=== PATIENT | female | born 1955 | race Caucasian/White ===

== ENCOUNTER 2019-09-29 20:22 | Emergency (ER) | payer OTHER, SELFPAY ==
[2019-09-29 20:21] VITALS: BP 110/56; PULSE 77; RESP 24; TEMP 36.7; O2SAT 100
--- NOTE | 2019-09-29 20:29 | ED.GENADUL_ITS ---
Discharge Plan Disposition Patient Disposition: HOME Condition: Good Discharge Details Chief Complaint: GenMedical Clinical Impression: Syncope, vasovagal, Neck pain on left side, Muscle strain Primary Care Provider: Elsa,Local ED Provider: Gera Abdalla Home Meds and New Rx's Prescriptions: No Action fluticasone propion-salmeterol [Advair Diskus] 250-50 mcg/dose Blister With Device 1 inh INHALATION DAILY RF: 0 fexofenadine [Kristen Allergy] 180 mg Tablet 180 mg PO DAILY RF: 0 montelukast [Singulair] 10 mg Tablet 10 mg PO DAILY RF: 0 Prilosec OTC 20 mg Tablet,Delayed Release (Dr/Ec) 20 mg PO DAILY RF: 0 Discharge Instructions Instructions: Muscle Strain (ED), Syncope (ED) Additional Instructions: At this time your heart markers show no signs of significant cardiac abnormality. Your passing out may have been from dehydration, however there is concern that a cardiac arrhythmia may have caused her symptoms. Since you are going home it is absolutely imperative that you follow-up extremely closely with your primary care provider in [place] as soon as possible. I would recommend a Holter monitor or Zio-patch. Make sure to drink plenty of fluids over the next few days. Stand up slowly after lying down for some time. If you notice any worsening of your symptoms, or any new symptoms such as vomiting, diarrhea, fever, chills, shortness of breath, chest pain, numbness, weakness, or fainting , please return immediately to the emergency department for reevaluation. Please follow up with your primary care provider as soon as possible for reassessment and reevaluation. As always, it was a pleasure participating in your medical care today. Medical Decision Making This is a 63-year-old female with a past medical history of asthma alone and mild reflux who presents today for evaluation of syncope and left neck pain. Patient had a day of snowshoeing and snow shoveling and had no complaints throughout the entire day except for mild left neck pain. She was taken to Celebrex without any significant change in her symptoms. This evening while she was resting she began to have worsening of her pain which led to nausea. She went to go to the bathroom when after defecating she had 2 episodes of syncope. She did not hit her head or have any trauma. She has consistently denied any chest pain shortness of breath. No cardiac history or history of stroke. Physical exam is notably unremarkable for any evidence of trauma, neurologic deficit, carotid bruit, or other abnormality that I can appreciate. EKG shows a partial right bundle. Will attempt to get previous EKGs from her home provider in [place]. Differential is broad, but includes dehydration, defecation/vagal related syncope, but also includes carotid aneurysm or dissection, or other atypical cardiac mediated abnormality. We will continue to monitor, gently rehydrate, get a CTA of the head neck and chest and reassess. 10:47 PM Patient's laboratory work-up is returned, no significant abnormalities, no electrolyte abnormalities, troponin normal, anion gap minimally elevated at 13.7. Left neck pain is notably relieved with Lidoderm patch. Patient is feeling much better. CT Carla of the head neck and chest have returned and per virtual radiology no evidence of aneurysm or acute abnormality whatsoever. No signs of stenosis of significance. Unfortunately we are unable to get the i nitial EKG from her other establishments. I again reiterated the patient's previous neck pain, and she states very clearly that there was no exertional component, it was not improved with rest, and was really very minimal earlier today. It seems very unlikely that this is related to a cardiac etiology and more likely musculoskeletal especially with the improvement with Lidoderm patch. I did discuss with the patient admission/observation to the hospital with her Vale syncope rule only being elevated with the slightly atypical EKG, and at this time through notable discussion, weighing the risks and benefits, utilizing a shared decision making process, and with a very clear discussion on the benefit of admission and the risks associated with discharge including the unlikely but potential worst case scenario of or lifelong disability the patient has refused admission and would like to go home. Patient is of a appropriate age to make decisions. The patient is of sound mind, appears clinically sober, and has capacity to make decisions by my clinical exam. Since we are discharging the patient per her wishes I have requested a repeat troponin and EKG. We will get serial troponins EKG prior to discharge. Also of note the patient will be traveling back to [place] tomorrow. She would like to follow-up with her doctor down there. 11:58 PM Serial troponins and serial EKGs remained unchanged. The patient feels well and still asking to go home. As discussed previously we did discuss risks and benefits of observation versus discharge, the patient understands and accepts these risks by being discharged at her request. Feel that her symptoms are likely commendation mild dehydration in conjunction with her multiple outdoor activities that occurred today, and especially in the absence of chest pain, tearing sensation in her chest, shortness of breath, arm or shoulder pain, and with no exertional components related to her neck pain and in addition to her neck pain being relieved with the Lidoderm patch, in conjunction with her being in the lowest risk category for the heart score I feel her symptoms are clinically inconsistent with ACS or cardiac etiology at this time. In spite of this at an abundance of precaution we have recommended that she follows up extremely closely with a primary care provider in [place] when she gets home. We discussed red flags for which to return. I have extensively reviewed the treatment plan and discharge instructions with the patient and their family. I have addressed all patient concerns at this time. The patient and family was made aware of what symptoms to monitor for that would warrant a return to the emergency department. Discussed the plan with the patient and family, they demonstrate verbal understanding and agreement with our assessment and plan at this time. Immediately prior to discharge we did get the patient up and ambulate her again. She did go urinate and did very well with no lightheadedness or syncope. She feels back to her baseline, and is ready to go home. EKG 20: 28 Rate 66, sinus rhythm, intervals normal, RSR in V1 with inverted T wave, 1 mm J- point elevation in V2, no other inverted T waves, no evidence of significant ST elevation indicative of STEMI. No depressions. EKG 23: 55 Rate 65, intervals normal, sinus rhythm, RSR in V1, with inverted T wave, 1 mm J-point elevation in V2. No other inverted T waves or significant elevation or depression. No signs of STEMI. No acute changes from prior EKG FINDINGS: Pulmonary arteries: Normal. No pulmonary emboli. Aorta: Unremarkable. No aortic aneurysm. No aortic dissection. Lungs: Unremarkable. No consolidation. No masses. Pleural space: Unremarkable. No pneumothorax. No pleural effusion. Heart: Unremarkable. No cardiomegaly. No pericardial effusion. Lymph nodes: Unremarkable. No enlarged lymph nodes. Bones/joints: Unremarkable. No acute fracture. Soft tissues: Unremarkable. IMPRESSION: No acute findings. Thank you for allowing us to participate in the care of your patient. Dictated and Authenticated by: Ari Gallegos MD 09/29/2019 10:26 PM Eastern Time ([place] & [place]) FINDINGS: Right internal carotid artery: Intracranial segment is patent with no evidence of hemodynamically significant stenosis. No aneurysm. Right anterior cerebral artery: No occlusion or significant stenosis. No aneurysm. Right middle cerebral artery: No occlusion or significant stenosis. No aneurysm. Right posterior cerebral artery: No occlusion or significant stenosis. No aneurysm. Right vertebral artery: No occlusion or significant stenosis. No aneurysm. Left internal carotid artery: Intracranial segment is patent with no evidence of hemodynamically significant stenosis. No aneurysm. Left anterior cerebral artery: No occlusion or significant stenosis. No aneurysm. Left middle cerebral artery: No occlusion or significant stenosis. No aneurysm. Left posterior cerebral artery: No occlusion or significant stenosis. No aneurysm. Left vertebral artery: No occlusion or significant stenosis. No aneurysm. Basilar artery: No occlusion or significant stenosis. No aneurysm. IMPRESSION: No intracranial arterial occlusion or significant stenosis. FINDINGS: Brain: No intracranial hemorrhage or extra-axial fluid collection. No evidence of mass effect or midline shift. Mansfield-white matter differentiation is intact. Ventricles: No ventriculomegaly. Bones/joints: No acute osseus lesion or fracture. Sinuses: Unremarkable as visualized. Mastoid air cells: Unremarkable. Soft tissues: Unremarkable. IMPRESSION: No acute intracranial pathology. ASPECTS score 10 FINDINGS: VASCULATURE: Right common carotid artery: No significant stenosis. No dissection or occlusion. Right internal carotid artery: Extracranial segment is patent with no significant stenosis (0% stenosis by NASCET criteria). No dissection or occlusion. Right external carotid artery: No occlusion or significant stenosis. Right vertebral artery: No significant stenosis. No dissection or occlusion. Left common carotid artery: No significant stenosis. No dissection or occlusion. Left internal carotid artery: Atherosclerotic plaques involving the proximal extracranial left internal carotid artery without evidence of hemodynamically significant stenosis (0% stenosis by NASCET criteria). Left external carotid artery: No occlusion or significant stenosis. Left vertebral artery: No significant stenosis. No dissection or occlusion. NECK: Bones/joints: No acute fracture. Soft tissues: Unremarkable. IMPRESSION: No occlusion or significant stenosis in the arteries of the neck. HPI General Date/Time Provider Initiated Documentation: 09/29/19 20:24 . HPI Narrative: This is a 63-year-old female with a past medical history of asthma and occasional reflux who presents today for evaluation of syncope and left neck pain. Patient is up visiting from [place]. Patient spent the entire day snowblowing, and snowshoeing and had no pain difficulty or complication at all during this. During these episodes she had no chest pain shortness of breath or anything else. However throughout the day she has had a mild aching stabbing left neck pain. She did take 2 Aleve and this slightly improved her symptoms. This evening at home she had 1 alcoholic beverage, and subsequently began having worsening of her left neck pain as the night went on, she felt lightheaded and nauseous, she went to the bathroom and had a bowel movement, she was spending quite some time and there, family members came into the bathroom and then the patient syncopized. She did not hit her head, no trauma. She then had 1 more subsequent episode of syncope during that time as well. EMS was contacted. Patient continues to deny chest pain ripping or tearing sensation shortness of breath. She denies any significant headache or vision changes. Her neck pain in the left persists. She denies vomiting, bloody stool, hematemesis, numbness tingling or focal weakness. She does admit some mild swelling in the left lower neck just proximal to the clavicle over the past few days but this is resolved with Benadryl. Patient has no other complaints at this time. She denies any cardiac disease in the past. She denies any previous episodes of syncope. No family or personal history of Marfan syndrome or Joseluis-Danlos syndrome. Her brother does have a pacemaker, which per report is secondary to a cardiac block. No other complaints at this time. No other modifying factors. Related Data Home Medications Medication Instructions Recorded Confirmed fexofenadine [Kristen Allergy] 180 mg PO DAILY 09/29/19 09/29/19 fluticasone propion-salmeterol 1 inh INHALATION DAILY 09/29/19 09/29/19 [Advair Diskus] montelukast [Singulair] 10 mg PO DAILY 09/29/19 09/29/19 omeprazole magnesium [Prilosec OTC] 20 mg PO DAILY 09/29/19 09/29/19 Allergies Allergy/AdvReac Type Severity Reaction Status Date / Time NSAIDS (Non-Steroidal Allergy Hives Unverified 09/29/19 20:26 Anti-Inflamma latex AdvReac Skin Rash Unverified 09/29/19 20:26 General Stated Complaint: GenMedical DIANA: 2 Review of Systems All systems reviewed & are unremarkable except as noted in HPI and below PFSH Social History Smoking/Tobacco Use Status: Never Alcohol Intake: current Alcohol Intake frequency: a few times a month Drug use: Never Substance use type: does not use Do you feel safe at home: Yes Do you feel safe in your relationship?: Yes Exam Narrative Exam Narrative: 1.Const: Well-nourished, Well-developed, appearing stated age 2.Eyes: PERRL, no conjunctival injection, and symmetrical lids. 3.ENT: Atraumatic external nose and ears. Moist MM. Neck: Symmetric, trachea midline, No thyromegaly. Patient demonstrates good movement of cervical neck. There is no nuchal rigidity, no nuchal tenderness. Patient is able to flex the neck without any difficulty or significant pain. Negative Kernig's and Brudzinski sign. 4.CVS: +S1/S2, No murmurs or gallops. Peripheral pulses 2+ and equal in all extremities. Brisk capillary refill in all extremities. No carotid bruits. No asymmetric swelling or edema. Radial pulses +2 bilaterally. 5.RESP: Unlabored respiratory effort. Clear to auscultation bilaterally. No wheezes rales or rhonchi 6.GI: Soft, Nontender/Nondistended, No hepatosplenomegaly. No guarding or rebound. 7.MSK: Normocephalic/Atraumatic, Extremities w/o deformity or ttp No cyanosis or clubbing, Normal movement of all extremities 8.Skin: Warm, Dry. No rashes or lesions. 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 Sensation grossly intact, no focal neurologic deficits. All 6 cardinal planes of vision are fully intact. No ev idence of rotatory or vertical nystagmus. The patient demonstrated a normal [id number], good dexterity. There was no evidence of dysdiadochokinesia. Patient was able to ambulate without difficulty. There was no wide-based gait. Romberg testing was normal. Covs-kx-qbqv testing was normal. Sensation was intact bilaterally as well as muscle strength bilaterally for all extremities. Patient was able to verbalize butter cup with no slurring, or miss pronunciation. 10.Psych: (AAO) x3. Appropriate mood and affect Course Vital Signs Vital signs: Vital Signs Temperature 36.7 C 09/29/19 20:21 Pulse 77 09/29/19 20:21 Respiratory Rate 24 09/29/19 20:21 Blood Pressure 110/56 L 09/29/19 20:21 Pulse Oximetry 100 09/29/19 20:21 Temperature 36.7 C 09/29/19 20:21 Temperature Source Skin 09/29/19 20:21 Pulse 77 09/29/19 20:21 Respiratory Rate 24 09/29/19 20:21 Blood Pressure 110/56 L 09/29/19 20:21 Blood Pressure Position Supine 09/29/19 20:21 Pulse Oximetry 100 09/29/19 20:21 Oxygen Delivery Method Room Air 09/29/19 20:21 Oxygen Flow Rate 0 09/29/19 20:21 Pain Level 6 09/29/19 20:21 Comment 09/29/19 20:21
[2019-09-29 20:30] VITALS: RESP 18
[2019-09-29] MEDS: Lidocaine 5% Patch 1 PATCH TP (20:35)
[2019-09-29] MEDS: Normal Saline 1,000 ML 1000 ML IV (20:36)
--- NOTE | 2019-09-29 20:42 | NUR.NOTE ---
KINGGeorge RandleKurtis with c/o multiple syncopal episodes. Pt had been snowshoeing today, went out to dinner, had 1 drink. Wasn;t feeling well, went to [facility] to have BM. Gerton too weak to get off toilet. Had 2 syncopal episodes witnessed by daughter. Denies CP, SOB. Arrives with #18 LAC, +BR, +flush. Arrives awake, alert and oriented. SR on monitor. Pt notes that she has had neck pain since this am. Noted swelling to base of neck several days ago. Pain L>R. Naga CARIAS.
[2019-09-29 20:46] LABS: Abs Immature Grans 0.02 k/cumm (0.0-0.09); Absolute Basophil Count 0.02 k/cumm (0.0-0.2); Absolute Eosinophil Count 0.01 k/cumm (0.0-0.7); Absolute Lymphocyte Count 1.08 k/cumm (1.2-3.4); Absolute Monocyte Count 0.87 k/cumm (0.11-0.7); Absolute Neutrophil Count 7.58 k/cumm (1.2-6.7); Basophils % 0.2; Eosinophils % 0.1; HCT 38.8 % (36.0-46.0); HGB 13.2 g/dL (12.0-15.5); Immature Grans % 0.2 %; Lymphocytes % 11.3; Mean Corpuscular Hemoglobin 30.1 pg (27.0-33.0); Mean Corpuscular Volume 88.4 fL (80-95); Mean Platelet Volume 9.7 fL (8.0-11.0); Monocytes % 9.1; Neutrophils % 79.1; Platelet Count 222 x1000/uL (130-400); RBC 4.39 m/cumm (4.00-5.20); RBC Distribution Width 12.7 % (11.7-14.6); White Blood Cell Count 9.58 k/cumm (4.4-10.8)
[2019-09-29 20:57] LABS: Prothrombin Time 9.9 sec (9.3-11.0)
[2019-09-29 21:10] LABS: ALT 18 U/L (14-59); AST 14 U/L (15-37); Albumin 3.5 g/dL (3.4-5.0); Alkaline Phosphatase 86 U/L (46-116); Anion Gap 13.7 mmol/L (3-11); BUN 17 mg/dL (7-18); Bilirubin, Total 0.5 mg/dL (0.2-1.0); CO2 25.3 mmol/L (21.0-32.0); CREATININE 0.77 mg/dL (0.55-1.02); Chloride 103 mmol/L (98-107); Glucose 132 mg/dL (74-106); Potassium 3.6 mmol/L (3.5-5.1); Sodium 142 mmol/L (136-145); Total Protein 6.6 g/dL (6.4-8.2)
[2019-09-29 21:11] LABS: Troponin I < 0.05 ng/Ml (<0.06)
[2019-09-29 21:22] VITALS: BP 99/61; PULSE 70; RESP 20; O2SAT 95
--- NOTE | 2019-09-29 21:39 | DI.CT_ITS ---
EXAM: CT BRAIN NECK CTA CLINICAL HISTORY: 2 episodes of syncope, shooting L neck pain, SOB TECHNIQUE: Noncontrast head CT followed by post-contrast imaging of the head and neck during the art erial phase. Axial CT angiography was performed with multi-slice acquisition and multi-planar and/or 3D reconstruc tions. COMPARISON: No exams were available for comparison FINDINGS: Noncontrast head CT: No intracranial hemorrhage, mass or infarct is seen. The ventricles are normal in size. There is no evidence of skull fracture. Orbits, sinuses and mastoid air cells are unremar kable. CTA of the head and neck: There is no evidence of vascular occlusion, dissection or significant steno sis in the head or neck. There is no vascular irregularity. There is no significant abnormality. IMPRESSION: Negative head CT. Negative CT angiography of the head and neck.
[2019-09-29] MEDS: Omnipaque 350 MG/ML 100 ML BTL IJ ×2 (21:41→21:44)
[2019-09-29] MEDS: Normal Saline - Diluent 50 ML VIAL IV (21:43)
[2019-09-29] MEDS: Normal Saline Flush 10 ML SYR IVP (21:45)
--- NOTE | 2019-09-29 21:47 | DI.CT_ITS ---
EXAM: CT THORAX CTA CLINICAL HISTORY: 2 episodes of syncope, shooting L neck pain, SOB TECHNIQUE: Post IV contrast. Axial CT angiography was performed with multi-slice acquisition and multi-planar and/or 3D reconstruc tions. COMPARISON: No exams were available for comparison FINDINGS: There is no evidence of pulmonary emboli or aortic dissection. No pleural or pericardial effusions are seen. No pulmonary infiltrates, mass or adenopathy is seen. No rib or spine fracture is seen. The visualized portions of the upper abdominal organs are unremarkable. IMPRESSION: Negative CTA of the chest.
[2019-09-29 22:02] VITALS: BP 112/65; PULSE 70; RESP 20; O2SAT 97
--- NOTE | 2019-09-29 22:23 | DI.VRAD_ITS ---
PROCEDURE INFORMATION: Exam: CT Angiography Head With Contrast Exam date and time: 09/29/2019 8:28 PM Age: 63 years old Clinical indication: Syncope and collapse; Patient HX: 2 episodes of syncope, shooting left neck pain, SOB TECHNIQUE: Imaging protocol: Computed tomography angiography of the head with intravenous contrast. 3D rendering: MIP and/or 3D reconstructed images were created by the technologist. Radiation optimization: All CT scans at this facility use at least one of these dose optimization techniques: automated exposure control; mA and/or kV adjustment per patient size (includes targeted exams where dose is matched to clinical indication); or iterative reconstruction. Contrast material: [id number]; Contrast volume: 85 ml; Contrast route: IV LAC 18G; COMPARISON: No relevant prior studies available. FINDINGS: Right internal carotid artery: Intracranial segment is patent with no evidence of hemodynamically significant stenosis. No aneurysm. Right anterior cerebral artery: No occlusion or significant stenosis. No aneurysm. Right middle cerebral artery: No occlusion or significant stenosis. No aneurysm. Right posterior cerebral artery: No occlusion or significant stenosis. No aneurysm. Right vertebral artery: No occlusion or significant stenosis. No aneurysm. Left internal carotid artery: Intracranial segment is patent with no evidence of hemodynamically significant stenosis. No aneurysm. Left anterior cerebral artery: No occlusion or significant stenosis. No aneurysm. Left middle cerebral artery: No occlusion or significant stenosis. No aneurysm. Left posterior cerebral artery: No occlusion or significant stenosis. No aneurysm. Left vertebral artery: No occlusion or significant stenosis. No aneurysm. Basilar artery: No occlusion or significant stenosis. No aneurysm. IMPRESSION: No intracranial arterial occlusion or significant stenosis. PROCEDURE INFORMATION: Exam: CT Head Without Contrast Exam date and time: 09/29/2019 8:28 PM Age: 63 years old Clinical indication: Syncope and collapse; Patient HX: 2 episodes of syncope, shooting left neck pain, SOB TECHNIQUE: Imaging protocol: Computed tomography of the head without contrast. COMPARISON: No relevant prior studies available. FINDINGS: Brain: No intracranial hemorrhage or extra-axial fluid collection. No evidence of mass effect or midline shift. Mansfield-white matter differentiation is intact. Ventricles: No ventriculomegaly. Bones/joints: No acute osseus lesion or fracture. Sinuses: Unremarkable as visualized. Mastoid air cells: Unremarkable. Soft tissues: Unremarkable. IMPRESSION: No acute intracranial pathology. ASPECTS score 10. PROCEDURE INFORMATION: Exam: CT Angiography Neck With Contrast Exam date and time: 09/29/2019 8:28 PM Age: 63 years old Clinical indication: Syncope and collapse; Patient HX: 2 episodes of syncope, shooting left neck pain, SOB TECHNIQUE: Imaging protocol: Computed tomography angiography of the neck with intravenous contrast. 3D rendering: MIP and/or 3D reconstructed images were created by the technologist. Radiation optimization: All CT scans at this facility use at least one of these dose optimization techniques: automated exposure control; mA and/or kV adjustment per patient size (includes targeted exams where dose is matched to clinical indication); or iterative reconstruction. Contrast material: [id number]; Contrast volume: 85 ml; Contrast route: IV LAC 18G; COMPARISON: No relevant prior studies available. FINDINGS: VASCULATURE: Right common carotid artery: No significant stenosis. No dissection or occlusion. Right internal carotid artery: Extracranial segment is patent with no significant stenosis (0% stenosis by NASCET criteria). No dissection or occlusion. Right external carotid artery: No occlusion or significant stenosis. Right vertebral artery: No significant stenosis. No dissection or occlusion. Left common carotid artery: No significant stenosis. No dissection or occlusion. Left internal carotid artery: Atherosclerotic plaques involving the proximal extracranial left internal carotid artery without evidence of hemodynamically significant stenosis (0% stenosis by NASCET criteria). Left external carotid artery: No occlusion or significant stenosis. Left vertebral artery: No significant stenosis. No dissection or occlusion. NECK: Bones/joints: No acute fracture. Soft tissues: Unremarkable. IMPRESSION: No occlusion or significant stenosis in the arteries of the neck. COMMENT: Reference per NASCET criteria for degree of stenosis: Mild: less than 50% stenosis. Moderate: 50-69% stenosis. Severe: 70-94% stenosis. Near occlusion: 95-99% stenosis. Dictated and Authenticated by: Chandler Storey MD. Ordering:HELEN Boss MD
--- NOTE | 2019-09-29 22:26 | DI.VRAD_ITS ---
PROCEDURE INFORMATION: Exam: CT Angiography Chest With Contrast Exam date and time: 09/29/2019 9:45 PM Age: 63 years old Clinical indication: Shortness of breath; Patient HX: 2 episodes of syncope, shooting left neck pain, SOB TECHNIQUE: Imaging protocol: Computed tomographic angiography of the chest with intravenous contrast. 3D rendering: MIP and/or 3D reconstructed images were created by the technologist. Radiation optimization: All CT scans at this facility use at least one of these dose optimization techniques: automated exposure control; mA and/or kV adjustment per patient size (includes targeted exams where dose is matched to clinical indication); or iterative reconstruction. Contrast material: [id number]; Contrast volume: 100 ml; Contrast route: IV LAC 18G; COMPARISON: No relevant prior studies available. FINDINGS: Pulmonary arteries: Normal. No pulmonary emboli. Aorta: Unremarkable. No aortic aneurysm. No aortic dissection. Lungs: Unremarkable. No consolidation. No masses. Pleural space: Unremarkable. No pneumothorax. No pleural effusion. Heart: Unremarkable. No cardiomegaly. No pericardial effusion. Lymph nodes: Unremarkable. No enlarged lymph nodes. Bones/joints: Unremarkable. No acute fracture. Soft tissues: Unremarkable. IMPRESSION: No acute findings. Dictated and Authenticated by: Ari Gallegos MD. Ordering:HELEN Boss MD
[2019-09-29 23:49] LABS: Troponin I < 0.05 ng/Ml (<0.06)
[2019-09-30 00:12] VITALS: BP 106/59; PULSE 68; RESP 18; O2SAT 97
--- NOTE | 2019-09-30 00:14 | NUR.NOTE ---
Ambulated to BR with steady gait. Denies dizziness and lightheadedness when standing. IV removed. Ambulated to exit with steady gait.
--- NOTE | 2019-09-30 12:39 | NUR.NOTE ---
Nursing Note: Patient called earlier this morning asking for a copy of her discharge instructions. I printed them and gave her a copy at this time. Alejandra Shore.
== END 2019-09-30 00:15 | disposition home or self-care (01) ==
PROVIDERS: Emergency Provider Student in an Organized Health Care Education/Training Program; Referring Provider Student in an Organized Health Care Education/Training Program
DX: R55 Syncope and collapse (principal); M54.2 Cervicalgia; R11.0 Nausea; S16.1XXA Strain of muscle, fascia and tendon at neck level, initial encounter; X50.9XXA Other and unspecified overexertion or strenuous movements or postures, initial encounter; Y93.29 Activity, other involving ice and snow
CPT/HCPCS: 36415; 70496; 70498; 71275; 80053; 93005; 96360; 96361; 99285; 84484; 85025; 85610; 85730; 93010; J3490

== ENCOUNTER 2022-09-11 10:39 | Observation (INO) | payer MEDICARE, BC, SELFPAY ==
[2022-09-11] VITALS (95 sets, daily range): BP systolic 114–157; BP diastolic 64–78; PULSE 56–83; RESP 8–37; TEMP 36.3–37; O2SAT 90–100
--- NOTE | 2022-09-11 10:30 | RT.EKG_ITS ---
APPROVED REPORT Exam: Resting ECG Reason for Exam: Dizziness Patient Location: E HR:62 bpm ECG Measurements Heart Rate 62 AXIS TN 137 P 81 QRSd 120 QRS 68 QT 447 T 55 QTc 455 Conclusion Sinus rhythm...normal P axis, V-rate 60- 99 Probable left atrial enlargement...P >50mS, <-0.10mV V1 IVCD, consider RBBB...QRSd>120mS, terminal axis(90,270)
--- NOTE | 2022-09-11 11:07 | W.ED.GENAD ---
Discharge Plan Discharge Details Chief Complaint: Dizzy/Sync Primary Care Provider: Unknown,Unknown ED Provider: Micah Ko Home Meds and New Rx's Prescriptions: No Action fexofenadine [Kristen Allergy] 180 mg Tablet 180 mg PO DAILY montelukast [Singulair] 10 mg Tablet 10 mg PO DAILY fluticasone propion-salmeterol [Wixela Inhub] 250-50 mcg/dose blister with device 1 inh INHALATION DAILY Medical Decision Making Medical Records Medical records narrative: Patient presents to the emergency room with classical signs of vertigo. Given persistency of symptoms she got an MRI that ruled out a infarct. She was treated for vertigo with multiple medications and she was refractory. Case was discussed with the hospitalist for admission for intractable vertigo. EKG was unremarkable labs unremarkable. HPI General Date/Time Provider Initiated Documentation: 09/11/22 10:54. HPI Narrative: 66-year-old lady presents to the emergency department for dizziness. He stated that she was driving and getting onto the highway. She has chronic neck stiffness so she turned her head to the right and the left in order to relieve her stiffness and got suddenly dizzy. She felt that everything was spinning. She felt that she could not drive anymore so she pulled over. She became nauseous and vomited. 911 was activated she was brought into the emergency department. This is not associated with any headaches. No visual disturbance. No focal weakness. Normal speech. She had a similar episode of vertigo 4 years ago. She was seen emergency department according to her symptoms resolved spontaneously. She has not been taking any new prescribed medication but has been self administering some Sudafed because of some postnasal drip. Related Data Home Medications Medication Instructions Recorded Confirmed fexofenadine 180 mg tablet 180 mg PO DAILY 09/29/19 09/11/22 (Kristen Allergy) montelukast 10 mg tablet 10 mg PO DAILY 09/29/19 09/11/22 (Singulair) fluticasone 250 mcg-salmeterol 50 1 inh inhalation DAILY 09/11/22 09/11/22 mcg/dose blistr powdr for inhalation (Wixela Inhub) Allergies Allergy/AdvReac Type Severity Reaction Status Date / Time NSAIDS (Non-Steroidal Allergy Hives Unverified 09/29/19 20:26 Anti-Inflamma latex AdvReac Skin Rash Unverified 09/29/19 20:26 General Stated Complaint: Dizzy/Sync DIANA: 3 Review of Systems Narrative: Review of system within system is negative unless otherwise stated in the HPI. PFSH All Active Problems (Updated 09/11/22 @ 15:51 by Sintia Meredith NP) Vertigo (Acute) Syncope, vasovagal (Acute) Neck pain on left side (Acute) Muscle strain (Acute) Social History Smoking/Tobacco Use Status: Never Smoking risk assessment performed?: Yes Alcohol Intake: current Alcohol Intake frequency: a few times a month Drug use: Never Substance use type: does not use Do you feel safe at home: Yes Do you feel safe in your relationship?: Yes Exam Narrative Exam Narrative: Awake alert [place] x3, no acute distress pleasant cooperative Normocephalic atraumatic PERRLA EOMI MMM positive horizontal nystagmus that is fatigable. Anicteric TMs clear bilaterally Chest is clear to auscultation bilaterally Heart regular rhythm and rate no murmurs Abdomen soft nondistended nontender Extremities no edema. Full range of motion. 5/5 strength bilaterally Neurological 2-12 grossly intact. Normal cerebellar functions. Skin no rashes Course Vital Signs Vital signs: Vital Signs Temperature 37.0 C 09/11/22 10:41 Pulse 65 09/11/22 10:41 Respiratory Rate 18 09/11/22 10:41 Blood Pressure 130/64 09/11/22 10:41 Pulse Oximetry 100 09/11/22 10:41 Temperature 37.0 C 09/11/22 10:41 Temperature Source Oral 09/11/22 10:41 Pulse 65 09/11/22 10:41 Respiratory Rate 18 09/11/22 10:45 Respiratory Effort Non-Labored 09/11/22 10:45 Respiratory Depth Normal 09/11/22 10:45 Respiratory Pattern Normal 09/11/22 10:45 Blood Pressure 130/64 09/11/22 10:41 Pulse Oximetry 100 09/11/22 10:41 Oxygen Delivery Method Room Air 09/11/22 10:41 Oxygen Flow Rate 0 09/11/22 10:41 PAWSS Have you Been Recently Intoxicated or Drunk Within the Last 30 days?: No Have you Ever Experienced Previous Episodes of Alcohol Withdrawal?: No Have you ever Experienced Withdrawal Seizures?: No Have you ever Experienced Delirium Tremens(DT)s?: No Have you ever undergone Alcohol Rehabilitation Treatment (i.e, inpt ot outpatient treatment programs)?: No Have you ever Experienced Blackouts?: No Have you ever Combined Alcohol with other Downers within the last 90 days?: No Have you ever Combined Alcohol with any other Substance of Abuse during the last 90 days?: No Positive Blood Alcohol level on Presentation? [PCS.BAL]: No Evidence of Increased Autonomic Activity (i.e. HR>120, tremor, sweating, agitation, nausea)?: No Result: 0
[2022-09-11] MEDS: Ondansetron 4 MG/2 ML VIAL IVP ×2 (11:18→15:00)
[2022-09-11] MEDS: Normal Saline 1,000 ML 1000 ML IV (11:18)
[2022-09-11] MEDS: Meclizine 25 MG TAB PO ×2 (11:22→19:47)
[2022-09-11 11:39] LABS: Anion Gap 8.1 mmol/L (3-11); BUN 15 mg/dL (7-18); CO2 28.9 mmol/L (21.0-32.0); CREATININE 0.9 mg/dL (0.55-1.02); Calcium 9.6 mg/dL (8.5-10.1); Chloride 105 mmol/L (98-107); Estimated GFR 70.51 (mL/min/1.73m2); Glucose 125 mg/dL (74-106); Potassium 3.3 mmol/L (3.5-5.1); Sodium 142 mmol/L (136-145)
[2022-09-11] MEDS: Potassium Chloride 20 MEQ TABCR PO (11:48)
--- NOTE | 2022-09-11 11:49 | NUR.NOTE ---
Nursing Note: Pt reports nausea has subsided at this time, has been able to keep meds down, medicated w/PO potassium as ordered, cont. to monitor.
--- NOTE | 2022-09-11 12:15 | DI.MRI_ITS ---
Exam(s) MR BRAIN WO EXAM: MR BRAIN WO CLINICAL HISTORY: dizziness TECHNIQUE: Multiplanar multisequence MRI of the brain was performed. COMPARISON: CT CT BRAIN NECK CTA from 09/29/2019 FINDINGS: The examination is limited due to patient motion artifact. VENTRICLES AND EXTRA AXIAL SPACES: Normal in size and morphology for the patient's age. MIDLINE SHIFT: None. CEREBRAL PARENCHYMA: No focus of restricted diffusion to suggest acute infarct. No space-occupying le sanna identified. There are few scattered hyperintense foci in the white matter on the FLAIR and T2 we ighted images likely reflecting small vessel ischemic disease. HEMORRHAGE: None. BRAINSTEM/CEREBELLUM: Normal. CALVARIUM: Normal. VISUALIZED PARANASAL SINUSES/MASTOIDS:Clear. [place]: Normal flow void. PITUITARY GLAND: Unremarkable. OTHER FINDINGS: None. IMPRESSION: 1. No acute intracranial process.. 2. Findings were discussed with Nessa Zazueta at 2:26 p.m. on 09/11/2022. DATA REPOSITORY:
--- NOTE | 2022-09-11 12:26 | NUR.NOTE ---
Nursing Note: pt continues to feel dizzy when lifting her head. pt does not want to try and walk at this time. made aware and ordering MRI.
[2022-09-11 12:38] LABS: Abs Immature Grans 0.05 10^3/uL (0.0-0.06); Absolute Basophil Count 0.03 10^3/uL (0.0-0.2); Absolute Eosinophil Count 0.01 10^3/uL (0.0-0.7); Absolute Lymphocyte Count 0.67 10^3/uL (1.2-3.4); Absolute Neutrophil Count 8.83 10^3/uL (1.2-6.7); Basophils % 0.3; Eosinophils % 0.1; HCT 37.1 % (36.0-46.0); HGB 12.5 g/dL (11.2-15.7); Immature Grans % 0.5; Lymphocytes % 6.5; MCH 30.8 pg (27.0-33.0); MCHC 33.7 % (32.0-36.0); MCV 91 fL (80-95); Monocytes % 6.8; Neutrophils % 85.8; Platelet Count 164 10^3/uL (130-400); RBC 4.06 10^6/uL (3.93-5.22); RDW 12.2 % (11.7-14.6); WBC 10.29 10^3/uL (4.4-10.8)
[2022-09-11 13:03] LABS: Magnesium 1.8 mg/dL (1.8-2.4)
[2022-09-11] MEDS: diazePAM 10 MG/2 ML SYR 2 MG IVP (13:03)
--- NOTE | 2022-09-11 13:11 | NUR.NOTE ---
Nursing Note: pt to MRI at this time
--- NOTE | 2022-09-11 15:20 | NUR.NOTE ---
Nursing Note: After returning from MRI pt reported feeling slightly nauseated still medicatd w/ordered iv zofran, VSS. 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
--- NOTE | 2022-09-11 15:50 | W.PM.HP.N ---
Date of service: 09/11/22 Time of Service: 15:50 Assessment and Plan Assessment and plan (1) Vertigo: Status: Acute Assessment and plan: negative MRI. symptoms not responding to fluids, valium, meclizine. unable to be safely re-ambulated referred to observation PT consultation continue prn medications, with scheduled meclizine fall precautions. discussed with Dr Urbano History of Present Illness History of Present Illness Chief Complaint: dizziness Narrative: This is a 66-year-old female patient with no significant past medical history who has been experiencing neck stiffness and today noted while driving when she turned her head toward the side that was hurting her she was experiencing dizziness. The dizziness was so severe she was unable to drive so pulled over. 911 was dispatched and brought her to the emergency department for evaluation. Her symptoms were most consistent with positional vertigo. She was given Valium and meclizine. She had no improvement in her symptoms. She underwent an MRI of the brain which was unremarkable. Continue to have her symptoms and was not felt safe for discharge to home so hospitalist services was contacted to admit her for further symptom management. She does report that she has had nasal congestion for the past several weeks that she attributed to allergies and has been taking [id number] allergy medication with no improvement in her symptoms Review of Systems All systems reviewed & are unremarkable except as noted in HPI and below ENT Ears, Nose, Mouth, and Throat: Reports vertigo, Reports dizziness and Reports nasal congestion Neurologic Neurologic: Reports vertigo and Reports dizziness PFSH All Active Problems (Updated 09/11/22 @ 15:51 by Sintia Meredith NP) Vertigo (Acute) Syncope, vasovagal (Acute) Neck pain on left side (Acute) Muscle strain (Acute) Social History Smoking/Tobacco Use Status: Never Smoking risk assessment performed?: Yes Alcohol Intake: current Alcohol Intake frequency: a few times a month Drug use: Never Substance use type: does not use Do you feel safe at home: Yes Do you feel safe in your relationship?: Yes Meds Allergies and Home Medications Allergies Allergy/AdvReac Type Severity Reaction Status Date / Time NSAIDS (Non-Steroidal Allergy Hives Unverified 09/29/19 20:26 Anti-Inflamma latex AdvReac Skin Rash Unverified 09/29/19 20:26 Home Medications Medication Instructions Recorded Confirmed Type fexofenadine 180 mg tablet 180 mg PO DAILY 09/29/19 09/11/22 History (Kristen Allergy) montelukast 10 mg tablet 10 mg PO DAILY 09/29/19 09/11/22 History (Singulair) albuterol sulfate 90 mcg/actuation 2 inh inhalation Q4H PRN PRN 09/11/22 09/11/22 History aerosol inhaler (Ventolin HFA) celecoxib 100 mg capsule 1 cap PO BID 09/11/22 09/11/22 History fluticasone 250 mcg-salmeterol 50 1 inh inhalation BID 09/11/22 09/11/22 History mcg/dose blistr powdr for inhalation (Wixela Inhub) meclizine 25 mg tablet 25 mg PO TID #30 tabs 09/12/22 Rx methocarbamol 500 mg tablet 1,000 mg PO QID PRN PRN #20 tabs 09/12/22 Rx promethazine 25 mg tablet 25 mg PO TID PRN #10 tabs 09/12/22 Rx Exam Const General: cooperative, healthy appearing, comfortable and no acute distress Nutritional Appearance: average body habitus Orientation: alert, awake and oriented x3 [facility] Head: normal to inspection, normocephalic and atraumatic Eyes General: appearance normal, both eyes and all related structures Alignment and Position: alignment normal Periorbital: periorbital findings normal Eyelids: eyelids normal Conjunctivae: conjunctivae normal Sclera: sclerae normal Cornea: corneas normal Pupils: PERRL EOM: EOM intact bilaterally and No nystagmus Neck Neck: normal visual inspection and limited ROM (Limited due to pain reporting left-sided discomfort no history of trauma) Chest Chest: normal inspection of the chest Resp Effort & Inspection: normal respiratory effort Auscultation: clear to auscultation bilaterally Cardio Rate: regular rate Rhythm: regular rhythm GI Inspection: normal to inspection Skin General skin exam: no rashes or lesions noted Neuro General: patient alert, patient awake, patient oriented x3, no focal motor deficits and CN's II-XI intact bilaterally Cranial Nerves: EOM intact bilaterally, no nystagmus, facial strength normal, able to rotate head bilaterally, able to elevate shoulders bilaterally and no nystagmus Cognition: normal cognition Speech: speech normal Motor: muscle tone normal throughout, strength 5/5 throughout and muscle tone abnormal Sensory Exam: no sensory deficits noted Extrem General: normal to inspection, full ROM and no pedal edema Psych Appearance: grossly normal and well kempt Mental Status: mental status grossly normal Speech and Movement: speech and movement normal Mood: congruent mood Affect: normal affect Attitude: cooperative Thought Process: normal Thought Content: normal Insight: insight good Judgment: judgment good Results Labs Result diagrams: 09/11/22 12:30 09/11/22 10:45 Labs: Laboratory Results - last 24 hr 09/11/22 09/11/22 09/11/22 10:45 12:30 12:30 WBC 10.29 RBC 4.06 Hgb 12.5 Hct 37.1 MCV 91 MCH 30.8 MCHC 33.7 RDW 12.2 Plt Count 164 MPV 9.0 Immature Gran % 0.5 Neutrophils % 85.8 Lymphocytes % 6.5 Monocytes % 6.8 Eosinophils % 0.1 Basophils % 0.3 Nucleated RBC % 0.0 Absolute Neutrophils 8.83 H Absolute Lymphocytes 0.67 L Absolute Monocytes 0.70 Absolute Eosinophils 0.01 Absolute Basophils 0.03 Sodium 142 Potassium 3.3 L Chloride 105 Carbon Dioxide 28.9 Anion Gap 8.1 BUN 15 Creatinine 0.9 Est GFR (CKD-EPI 2020) 70.51 Glucose 125 H Calcium 9.6 Magnesium 1.8 Last Vital Signs Temp 36.3 C L 09/11/22 15:02 Pulse 66 09/11/22 15:02 Resp 18 09/11/22 15:02 BP 126/71 09/11/22 15:02 Pulse Ox 99 09/11/22 15:02 PAWSS Have you Been Recently Intoxicated or Drunk Within the Last 30 days?: No Have you Ever Experienced Previous Episodes of Alcohol Withdrawal?: No Have you ever Experienced Withdrawal Seizures?: No Have you ever Experienced Delirium Tremens(DT)s?: No Have you ever undergone Alcohol Rehabilitation Treatment (i.e, inpt ot outpatient treatment programs)?: No Have you ever Experienced Blackouts?: No Have you ever Combined Alcohol with other Downers within the last 90 days?: No Have you ever Combined Alcohol with any other Substance of Abuse during the last 90 days?: No Positive Blood Alcohol level on Presentation? [PCS.BAL]: No Evidence of Increased Autonomic Activity (i.e. HR>120, tremor, sweating, agitation, nausea)?: No Result: 0 Time Spent Time spent with Patient: <40 minutes Time was spent: preparing to see the patient(eg.review tests), obtaining and/or reviewing separately otained hiistory, ordering medications,tests, procedures and counseling the patient
[2022-09-11 15:52] LABS: Source Nasopharynx
--- NOTE | 2022-09-11 16:31 | NUR.NOTE ---
Nursing Note: report given to GARETT Carrillo. pt transported to room 207 by ED PROFILE SAW OPERATOR.
[2022-09-11 16:32] LABS: COVID-19 PCR Negative (Negative)
[2022-09-11] MEDS: POTASSIUM CHLORIDE/0.45% NACL 1,000 ML 100 MEQ IV (17:57)
[2022-09-11] MEDS: Normal Saline Flush 10 ML SYR IVP ×2 (17:57→19:47)
[2022-09-11] MEDS: Acetaminophen 325 MG TAB 650 MG PO (19:46)
[2022-09-11] MEDS: Budesonide/Formoterol 160/4.5 6 GM 60 PUFF INH IH (19:48)
[2022-09-12 03:00] VITALS: BP 112/70; PULSE 64; RESP 16; TEMP 36.6; O2SAT 96
[2022-09-12] MEDS: Meclizine 25 MG TAB PO ×2 (07:30→14:11)
[2022-09-12] MEDS: Normal Saline Flush 10 ML SYR IVP (07:30)
[2022-09-12 07:41] VITALS: BP 134/75; PULSE 68; RESP 16; TEMP 36.9; O2SAT 97
[2022-09-12] MEDS: Budesonide/Formoterol 160/4.5 6 GM 60 PUFF INH IH (08:18)
[2022-09-12] MEDS: Normal Saline 500 ML 100 ML IV (08:56)
[2022-09-12] MEDS: Acetaminophen 325 MG TAB 650 MG PO (08:56)
--- NOTE | 2022-09-12 09:49 | PT.INNT ---
Date of service: 09/12/22 Time of Service: 09:49 PT Notes Visit Reasons: Vertigo Attempted PT evaluation however patient continues to be vomiting. Will attempt tomorrow morning.
[2022-09-12 11:07] VITALS: BP 126/73; PULSE 64; RESP 16; TEMP 36.8; O2SAT 96
--- NOTE | 2022-09-12 14:31 | PDOC.CMIN ---
- If Service Date Differs Date of service: 09/12/22 Time of Service: 14:31 Care Management Initial Assess REASON FOR HOSPITALIZATION:: Vertigo. PAST MEDICAL HISTORY/PAST SURGICAL HISTORY:: All Active Problems: Vertigo (Acute), Syncope, vasovagal (Acute), Neck pain on left side (Acute), and Muscle strain (Acute). No Medical/Surgical History noted in chart. PREVIOUS FUNCTIONAL STATUS/SOCIAL/FAMILY SUPPORTS:: Nadira lives in [facility] with her David and their pets. 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 They own a house in [place] where they spend their leisure time. Nadira is active and independent at baseline. CURRENT FUNCTIONAL STATUS:: Nadira is sitting up in bed when CM enters her room. She is pleasant and easily engages in conversation. She inquires when she might be going home as she needs to get back to [place] prior to Wednesday and says a friend is available to drive her car from [place] to [place], if she is discharged over the weekend. ADVANCE DIRECTIVES:: None on file. Has patient been provided with info about the portal/API?: Yes Did the patient sign up for the portal?: Yes CODE STATUS:: Full Code INSURANCE COVERAGE / FINANCIAL ISSUES:: BCBS of [facility] and Medicare. CURRENT HOME/COMMUNITY SERVICES/EQUIPMENT:: None. PRIMARY CARE PHYSICIAN:: Yazmin Caldera MD ([place], [place]). POTENTIAL DISCHARGE NEEDS:: Follow up appointment with PCP and discharge plan of care. PATIENT/FAMILY EDUCATION NEEDS:: Review of discharge instructions and discuss Ask Me Three. ANTICIPATED BARRIERS TO DISCHARGE:: None identified at this time. TRANSPORTATION:: Via private vehicle with . PLAN:: Nadira will be discharged home with no services when medically cleared by provider. She will follow up with her PCP and plan of care as directed. She will be transported home by her via private vehicle when ready. CM will continue to follow.
--- NOTE | 2022-09-12 15:37 | W.PM.DS.N ---
Date of service: 09/12/22 Time of Service: 15:38 DS: Diagnosis Discharge Diagnosis (1) Vertigo: Status: Acute Discharge Plan Disposition Patient Disposition: Home Condition: Improving Discharge Details Reason For Visit: Vertigo Admit Date/Time: 09/11/22 15:27 Admit Provider: Derik Urbano Attending Provider: Derik Urbano Primary Care Provider: Unknown,Unknown Hospital Course Hospital Course: This is a 66-year-old female with no significant past medical history who was brought to the emergency department after having episode of vertigo while driving. Her work-up in the emergency department included a brain MRI which was unremarkable. She was given Valium and meclizine fluids with no improvement in her symptoms so was admitted to observation for further symptom management. A physical therapy consult was placed but unfortunately they never evaluated her as she was vomiting when they tried to see her. She did have some improvement in her symptoms after being medicated with Phenergan and was able to tolerate a regular diet for lunch. She still had some symptoms with position change and movement but felt that she was safe for discharge to home and can tolerate p.o. adequately. She was given a prescription for meclizine promethazine and methocarbamol for symptom management. She will follow-up with her primary care provider outpatient for PT repeat referral if her symptoms persist. Her PCP is in the [place] area and she was planning on returning there after discharge. Discharge discussed with Dr. Rodriguez Home Meds and New Rx's Prescriptions: New methocarbamol 500 mg Tablet 1,000 mg PO QID PRN PRNQty: 20 0RF meclizine 25 mg Tablet 25 mg PO TID Qty: 30 0RF promethazine 25 mg tablet 25 mg PO TID PRNQty: 10 0RF Continued fexofenadine [Kristen Allergy] 180 mg Tablet 180 mg PO DAILY montelukast [Singulair] 10 mg Tablet 10 mg PO DAILY fluticasone propion-salmeterol [Wixela Inhub] 250-50 mcg/dose blister with device 1 inh INHALATION BID albuterol sulfate [Ventolin HFA] 90 mcg/actuation HFA aerosol inhaler 2 inh INHALATION Q4H PRN PRN Label Comments: INHALE 2 PUFFS EVERY 4 TO 6 HOURS NEEDED *RINSE MOUTHPIECE AT LEAST ONCE PER WEEK* celecoxib 100 mg capsule 1 cap PO BID Label Comments: TAKE 1 CAPSULE BY MOUTH TWICE A DAY Discharge Instructions Instructions: Vertigo (DC) Stand Alone Forms: Nursing Discharge Form Referrals: PCP [Other] (Please follow up with your PCP) Richard Villeda, Physical Therapy [Outside] (Please call Wednesday to make an appointment for vertigo.) Activity:: Activity as Tolerated Equipment/Supplies:: No Equipment Needed Diet:: As Tolerated Discharge Orders Discharge Orders: Discharge Order (Routine); Ordered 09/12/22 Ordered By: Sintia Meredith Discharge Data Discharge Date/Time-TO BE ENTERED AT DEPARTURE: 09/12/22 16:54 DS: Summary Time Spent with Patient providing and/or coordinating discharge services: Less than 30 minutes Status at Discharge Functional status at discharge: independent ambulation Overall status at discharge: patient is progressing back to baseline Mental Status: mental status grossly normal Speech and Movement: speech and movement normal Mood: congruent mood Affect: normal affect Exam Const General: cooperative, healthy appearing, comfortable and no acute distress Nutritional Appearance: average body habitus Orientation: alert, awake and oriented x3 HENMT Head: normal to inspection, normocephalic and atraumatic Eyes General: appearance normal, both eyes and all related structures Alignment and Position: alignment normal Periorbital: periorbital findings normal Eyelids: eyelids normal Conjunctivae: conjunctivae normal Sclera: sclerae normal Cornea: corneas normal Pupils: PERRL EOM: EOM intact bilaterally and No nystagmus Neck Neck: normal visual inspection and limited ROM (Limited due to pain reporting left-sided discomfort no history of trauma) Chest Chest: normal inspection of the chest Resp Effort & Inspection: normal respiratory effort Auscultation: clear to auscultation bilaterally Cardio Rate: regular rate Rhythm: regular rhythm GI Inspection: normal to inspection Skin General skin exam: no rashes or lesions noted Neuro General: patient alert, patient awake, patient oriented x3, no focal motor deficits and CN's II-XI intact bilaterally Cranial Nerves: EOM intact bilaterally, no nystagmus, facial strength normal, able to rotate head bilaterally, able to elevate shoulders bilaterally and no nystagmus Cognition: normal cognition Speech: speech normal Motor: muscle tone normal throughout, strength 5/5 throughout and muscle tone abnormal Sensory Exam: no sensory deficits noted Extrem General: normal to inspection, full ROM and no pedal edema Psych Appearance: grossly normal and well kempt Mental Status: mental status grossly normal Speech and Movement: speech and movement normal Mood: congruent mood Affect: normal affect Attitude: cooperative Thought Process: normal Thought Content: normal Insight: insight good Judgment: judgment good DS: Data Vitals/I&O Vitals and I&O: Vital Signs Temperature 36.8 C 09/12/22 11:07 Temperature Source Tympanic 09/12/22 11:07 Pulse 64 09/12/22 11:07 Pulse Rhythm Regular 09/12/22 07:29 Pulse 64 09/11/22 13:01 Respiratory Rate 16 09/12/22 11:07 Respiratory Effort Non-Labored 09/12/22 07:29 Respiratory Depth Normal 09/12/22 07:29 Respiratory Pattern Normal 09/12/22 07:29 Blood Pressure 126/73 09/12/22 11:07 Blood Pressure Mean 81 09/11/22 13:00 Pulse Oximetry 96 09/12/22 11:07 Oxygen Delivery Method Room Air 09/12/22 11:07 Oxygen Flow Rate 0 09/12/22 11:07 Pain Level 0 09/12/22 12:02 Comment 09/12/22 12:02 Intake & Output 09/11/22 09/12/22 09/12/22 23:59 11:59 23:59 Intake Total 1100 / 1100 1232.667 / 1832.667 600 / 1832.667 Output Total 1550 / 1550 950 / 1850 900 / 1850 Balance -450 / -450 282.667 / -17.333 -300 / -17.333 Weight 65.317 kg Intake: IV 1000 / 1000 1112.667 / 1112.667 Oral 100 / 100 120 / 720 600 / 720 Output: Urine 1350 / 1350 800 / 1700 900 / 1700 Emesis 200 / 200 150 / 150 Other: Urine Color Yellow Yellow Yellow Urine Appearance Clear Clear Clear Urine Odor Normal Normal Comment unable to measure voided in toilet, no hat Void x1 in the toilet. Stool Size Moderate Stool Characteristics Soft Formed Brown Emesis Description Clear/Water Clear/Water Voiding Methods Toilet Toilet Data Completed and Pending Labs on day of discharge: Labs from last 24 hours 09/11/22 15:45 COVID-19 Source Nasopharynx SARS-CoV-2 (PCR) Negative PFSH All Active Problems (Updated 09/11/22 @ 15:51 by Sintia Meredith NP) Vertigo (Acute) Syncope, vasovagal (Acute) Neck pain on left side (Acute) Muscle strain (Acute) Social History Smoking/Tobacco Use Status: Never Smoking risk assessment performed?: Yes Alcohol Intake: current Alcohol Intake frequency: a few times a month Drug use: Never Substance use type: does not use Do you feel safe at home: Yes Do you feel safe in your relationship?: Yes Time Spent with Patient Time Spent with Patient: <45 minutes Time was spent: preparing to see the patient(eg.review tests), obtaining and/or reviewing separately otained hiistory, ordering medications,tests, procedures, indepentently interpreting results and counseling the patient
[2022-09-12 15:57] VITALS: BP 134/78; PULSE 67; RESP 16; TEMP 37; O2SAT 97
[2022-09-12] MEDS: Methocarbamol 500 MG TAB 1000 MG PO (16:13)
--- NOTE | 2022-09-12 16:30 | PDOC.CMDIS ---
- If Service Date Differs Date of service: 09/12/22 Time of Service: 16:30 LACE Index Scoring Tool - Questions: Length of Stay (in days): 1 Acuity (Admit via E.D.?): Yes E.D. Visits: 1 - Answers: Total Score: 5 Risk of Readmission: Low Risk Care Management Discharge Reason for Hospitalization: Vertigo. Discharge Plan: Nadira is discharged home with no services. She will follow up with her PCP, physical therapy on an outpatient basis and her plan of care as directed. She is transported home by her via private vehicle. Patient/Family Education Needs: Review of discharge instructions, limitations, medications and follow up plan of care; discuss Ask Me Three.
== END 2022-09-12 16:54 | disposition home or self-care (01) ==
LOC: ER 15:34 → MS 16:36
PROVIDERS: Admitting Provider Internal Medicine; Emergency Provider Emergency Medicine; Visit Provider Internal Medicine
DX: R42 Dizziness and giddiness (principal); Z20.822 Contact with and (suspected) exposure to COVID-19; Z79.899 Other long term (current) drug therapy; R11.2 Nausea with vomiting, unspecified; M43.6 Torticollis
CPT/HCPCS: 36415; 80048; 87635; 93005; 94640; 96361; 96365; 96366; 96367; 96372; 96374; 96375; 99285; 70551; 83735; 85025; 93010; 99222; 99238; G0378; J2405; J3360; J3490